=== PATIENT | female | born 1975 | race Hispanic/Latino ===

== ENCOUNTER 2019-01-18 16:24 | Emergency (ER) | payer BC, MEDICAID, SELFPAY ==
[2019-01-18 18:04] LABS: Hemoglobin 14.3 g/dL (12.0-16.0); Mean Corpuscular HGB CONC 34.2 g/dL (32.0-36.0); Mean Corpuscular Hemoglobin 29.3 pg (27.0-31.0); Mean Corpuscular Volume 85.6 fL (78.0-98.0); Mean Platelet Volume 10.8 fL (7.4-10.4); Platelet Count 150 thou/uL (130-400); RBC Distribution Width 12.1 % (11.5-14.5); Red Blood Cell (RBC) Count 4.89 mill/uL (4.20-5.40); White Blood Cell (WBC) Count 6.4 thou/uL (4.8-10.8)
[2019-01-18 18:25] LABS: Band 21 % (5-11); Lymphocytes 7 % (21-51); MDiff Complete? YES; Monocytes 3 % (0-10); Neutrophil 69 % (42-75); Platelet Morphology Comment Appears Adequate
[2019-01-18 19:14] LABS: Bilirubin Negative (Negative); Blood, Urine Small (Negative); Clarity CLEAR (Clear); Glucose, Urine (Dipstick) Negative (Negative); Leukocyte Negative (Negative); Nitrite Negative (Negative); Protein, Urine (Dipstick) Negative (Neg-Trace); Specific Gravity, Urine 1.016 (1.002-1.036); Urobilinogen 0.2 mg/dL (0.2-1.0)
[2019-01-18 19:16] LABS: Bacteria/HPF None Seen HPF (None Seen); Hyaline Casts/LPF 0-3 HYALINE CAST LPF (0-3 Hyaline); Pathc Cast-AUWi Flag 0.29 (0-2.49); Squamous Epithelial 0-3 HPF (0-3); WBC/HPF 0-3 HPF (0-3)
--- NOTE | 2019-01-18 21:08 | ULT ---
PELVIC SONOGRAM TRANSABDOMINAL AND TRANSVAGINAL IMAGING WITH DUPLEX EVALUATION 01/18/19 HISTORY: Early . Pelvic pain and bleeding. FINDINGS: The urinary bladder is unremarkable. The uterus is retroverted. Intrauterine gestation sac contains a small yolk sac and pole. heart motion at 187 beats per minute. Measurements correlate wi th 8 weeks, 6 days gestational age giving an estimated date of delivery of 08/24/19. No evidence of wells bchorionic hemorrhage. Right ovary is 3.6 cm and left is 3.4 cm. Each has a normal sonographic appearance with good color a nd spectral doppler flow. IMPRESSION: Retroverted uterus. Single intrauterine gestation with estimated gestational age based on today's son ogram of 8 weeks, 6 days gestational age. No significant abnormalities are demonstrated. POS: BST
== END 2019-01-18 19:59 | disposition home or self-care (01) ==
LOC: ERS 16:24
DX: O09.91 Supervision of high risk pregnancy, unspecified, first trimester (principal); O99.511 Diseases of the respiratory system complicating pregnancy, first trimester; J10.1 Influenza due to other identified influenza virus with other respiratory manifestations; O99.89 Other specified diseases and conditions complicating pregnancy, childbirth and the puerperium; R31.9 Hematuria, unspecified; O99.341 Other mental disorders complicating pregnancy, first trimester; F32.9 Major depressive disorder, single episode, unspecified; Z3A.08 8 weeks gestation of pregnancy
CPT/HCPCS: 36415; 76856; 81003; 81015; 84702; 85025; 86900; 86901; 87086; 87804

== ENCOUNTER 2019-08-14 14:28 | Day surgery (SDC) | payer MEDICAID, OTHER, SELFPAY ==
[2019-08-14 20:11] VITALS: BP 112/61; TEMP 98.9; BMI 34.0
== END 2019-08-14 20:32 | disposition home or self-care (01) ==
LOC: L&D/OP 14:28 → UNDOADMIN 19:15 → L&D 19:15 → EDSTATUS 19:45 → UNDODISIN 20:32 → L&D/OP 20:32
PROVIDERS: ATTEND Family Medicine
DX: O47.9 False labor, unspecified (principal); Z3A.00 Weeks of gestation of pregnancy not specified
CPT/HCPCS: 36415; 85027; 86780; 86850; 86900; 86901; 87340; 99282; J2001; J2210

== ENCOUNTER 2019-08-15 00:15 | Inpatient (IN) | payer MEDICAID, OTHER, SELFPAY ==
[2019-08-15] MEDS ORDERED: Lidocaine 1% (PF) 30 ML VIAL ONE (03:06)
[2019-08-15] MEDS ORDERED: NS / Oxytocin 40 units/1000ml 1,000 ML ONE (03:06)
[2019-08-15] MEDS ORDERED: Lidocaine 1% (PF) 30 ML VIAL SC PRN (03:07)
[2019-08-15] MEDS ORDERED: HYDROcodone/Acetaminophen 5/325 mg Tablet PO PRN (03:07)
[2019-08-15] MEDS ORDERED: Ondansetron PF 4 MG/2 ML Vial IVP PRN ×2 (03:07→04:55)
[2019-08-15] MEDS ORDERED: NS / Oxytocin 40 units/1000ml 1,000 ML IV PRN (03:07)
[2019-08-15] MEDS ORDERED: Ibuprofen 800 MG TAB PO PRN (03:07)
[2019-08-15] MEDS ORDERED: hydrALAZINE 20 MG/ML VIAL SLOW IVP PRN ×2 (03:07→04:55)
[2019-08-15] MEDS ORDERED: Lactated Ringer's 1,000 ML IV SCH ×2 (03:15)
[2019-08-15 03:27] LABS: Hemoglobin 15.1 g/dL (12.0-16.0); Mean Corpuscular HGB CONC 35.5 g/dL (32.0-36.0); Mean Corpuscular Hemoglobin 31.6 pg (27.0-31.0); Mean Corpuscular Volume 89.1 fL (78.0-98.0); Platelet Count 134 thou/uL (130-400); White Blood Cell (WBC) Count 15.1 thou/uL (4.8-10.8)
[2019-08-15] MEDS ORDERED: Methylergonovine 0.2 MG/ML VIAL ONE (03:30)
[2019-08-15] MEDS ORDERED: Misoprostol 200 MCG TAB ONE (03:30)
[2019-08-15 04:04] LABS: HBSAg Index 0.19 S/CO (0-0.99); Hep B Surf Ag Non-Reactive S/CO (NonReactive); Syphilis Antibody Nonreactive (Nonreactive); Syphilis Antibody Index 0.02 S/CO (<1.00 Non-Reactive)
[2019-08-15 04:21] VITALS: BMI 26.6
[2019-08-15] MEDS ORDERED: Adacel (T-DAP) 0.5 ML SYRINGE IM ONE (04:55)
[2019-08-15] MEDS ORDERED: Bisacodyl 10 MG SUPP PR PRN (04:55)
[2019-08-15] MEDS ORDERED: Lanolin Ointment 7 GM TUBE TOP PRN (04:55)
[2019-08-15] MEDS ORDERED: Milk Of Magnesia 30 ML UDCUP PO PRN (04:55)
[2019-08-15] MEDS ORDERED: NS / Oxytocin 40 units/1000ml 1,000 ML IV SCH (04:55)
[2019-08-15] MEDS: Ibuprofen 800 MG TAB PO SCH ×3 (06:24→21:36)
[2019-08-15] MEDS: Docusate Calcium (SURFAK) 240 MG CAP PO SCH ×2 (08:16→21:36)
[2019-08-15] MEDS: Prenatal Vitamin 1 TAB PO SCH (08:16)
[2019-08-15] MEDS: Ferrous Sulfate 325 MG TAB PO SCH ×2 (10:08→17:25)
--- NOTE | 2019-08-15 14:44 | DN ---
DATE OF PROCEDURE: 08/15/2019 The patient delivered a female on 08/15/2019 at 0327 hours. Gestational age is 39 weeks and 3 days. weight is 3284 g. Apgars were 9 and 9. The patient's placenta delivered spontaneously followed by Pitocin infusion. There were no lacerations. Quantity of blood loss [address] Estrada is the delivering physician. There were no complications. Counts were correct. Mother and baby were stable in the immediate . Job ID: [id number]
[2019-08-15] MEDS: HYDROcodone/Acetaminophen 5/325 mg Tablet PO PRN ×2 (17:22→21:37)
[2019-08-16] MEDS: HYDROcodone/Acetaminophen 5/325 mg Tablet PO PRN (04:20)
[2019-08-16] MEDS: Ibuprofen 800 MG TAB PO SCH (06:05)
[2019-08-16 06:15] LABS: Hemoglobin 12.5 g/dL (12.0-16.0); Mean Corpuscular Hemoglobin 31.1 pg (27.0-31.0); Mean Corpuscular Volume 91.6 fL (78.0-98.0); Mean Platelet Volume 10.9 fL (7.4-10.4); Platelet Count 131 thou/uL (130-400); RBC Distribution Width 12.2 % (11.5-14.5); Red Blood Cell (RBC) Count 4.02 mill/uL (4.20-5.40); White Blood Cell (WBC) Count 8.5 thou/uL (4.8-10.8)
--- NOTE | 2019-08-16 06:45 | PDOC.PP ---
Post Progress Note Post Day #: 1 Subjective: Doing well PO intake tolerated: yes Flatus: yes Ambulation: yes Vital Signs (12 hours) Temp Pulse Resp BP Pulse Ox 08/16/19 04:15 97.9 F 60 18 105/61 99 08/16/19 00:10 97.9 F 62 20 105/58 L 98 08/15/19 20:15 98.2 F 60 18 113/53 L 97 08/15/19 20:08 98.2 F 68 16 104/55 L 98 Weight Weight 160 lb - Physical Examination General: NAD Respiratory: non-labored breathing Abdominal: + bowel sounds, lochia, no distention, appropriately TTP Extremities: negative homans (B) Neurological: no gross focal deficits Psychiatric: A&Ox3, normal affect Result Diagrams: 08/16/19 05:40 Additional Labs: Post Labs Blood Type O POSITIVE 08/15/19 03:18 Hep Bs Antigen Non-Reactive S/CO (NonReactive) 08/15/19 03:18 (1) Elderly multigravida delivered Code(s): O09.529 - SUPERVISION OF ELDERLY MULTIGRAVIDA, UNSPECIFIED TRIMESTER Status: Acute - Assessment/Plan S/P ...PPD1 doing well. Consider PP DC to home later this pm or tomorrow
[2019-08-16 08:24] VITALS: BP 111/54; TEMP 97.7
[2019-08-16] MEDS: Ferrous Sulfate 325 MG TAB PO SCH (09:54)
[2019-08-16] MEDS: Prenatal Vitamin 1 TAB PO SCH (10:43)
[2019-08-16] MEDS: Docusate Calcium (SURFAK) 240 MG CAP PO SCH (10:44)
== END 2019-08-16 12:49 | disposition home or self-care (01) | DRG 807 ==
LOC: L&D 02:38 → 3SE 06:14
PROVIDERS: ADMIT Family Medicine; ATTEND Family Medicine
PROC: 10E0XZZ Delivery of Products of Conception, External Approach (ICD-10-PCS; principal; 2019-08-15)
DX: O62.3 Precipitate labor (principal); Z37.0 Single live birth; Z3A.39 39 weeks gestation of pregnancy
CPT/HCPCS: 36415; 85027; 86780; 86850; 86900; 86901; 87340; J2001; J2210